=== PATIENT | female | born 1975 | race African-American/Black ===

== ENCOUNTER 2016-10-31 04:01 | Emergency (ER) | payer SELFPAY ==
[~2016-10-31 04:01] MED LIST: BISA-57 PO; IBUP-1542 PO
== END 2016-10-31 05:10 | disposition left against medical advice (07) ==
LOC: E/R 04:01
DX: Z53.21 Procedure and treatment not carried out due to patient leaving prior to being seen by health care provider (principal)

== ENCOUNTER 2017-02-12 06:36 | Emergency (ER) | payer OTHER ==
[~2017-02-12] VITALS: Ht 170.2 cm; Wt 68.0 kg
[2017-02-12 06:38] VITALS: Ht 170.2 cm; Wt 68.0 kg
[2017-02-12] MEDS ORDERED: LORATADINE 10 MG TAB PO STA ×2 (06:52→06:57)
[2017-02-12] MEDS ORDERED: LORA1TAB54 PO (06:54)
[2017-02-12] MEDS ORDERED: ACET325T33 PO (06:54)
[2017-02-12] MEDS ORDERED: FLUT9.9S NASAL (06:54)
--- NOTE | 2017-02-12 07:12 | ERD ---
ER Documentation Chief Complaint Date/Time DATE: 02/12/17 TIME: 07:06 Chief Complaint left side neck swelling w/ sinus pressure x3 wks HPI This is a 42-year-old female with no relevant medical problems presenting to the emergency department complaining of coming and going sinus pressure that is located mostly on the left side for the past 3 weeks. Overall she rates as 7 out of 10. Patient admits to having itchy throat, postnasal drip. Patient has not tried any medications. Patient states that she feels as if she has a swollen lymph node to her left throat ROS All systems reviewed and are negative except as per history of present illness. Medications Home Meds Active Scripts Acetaminophen* (Tylenol*) 325 Mg Tablet, 2 TAB PO Q6 Y for PAIN AND OR ELEVATED TEMP, #30 TAB Prov:CHICO LAL PA-C 02/12/17 Fluticasone Propionate (Flonase Allergy Relief) 9.9 Ml [place].susp, 1 SPRAY NASAL BID, #1 BOTTLE TO EACH NOSTRIL Prov:CHICO LAL PA-C 02/12/17 Loratadine/Pseudoephedrine* (Claritin-D* 12 Hr) 5-120 Mg Tab.er.12h, 1 TAB PO Q12, #30 TAB.SA Prov:CHICO LAL PA-C 02/12/17 Bisacodyl* (Dulcolax*) 5 Mg Tablet.dr, 10 MG PO DAILY Y for CONSTIPATION for 10 Days, TAB Prov:GATESOSCAR WARREN I. MOLDING MACHINE OPERATOR 01/05/16 Ibuprofen* (Motrin*) 600 Mg Tab, 600 MG PO Q6, #30 TAB Prov:OSCAR GATES I. MOLDING MACHINE OPERATOR 10/02/15 Allergies Allergies: Coded Allergies: No Known Allergy (Unverified , 10/02/15) PMhx/Soc History of Surgery: No Anesthesia Reaction: No Hx Neurological Disorder: No Hx Respiratory Disorders: No Hx Cardiac Disorders: No Hx Psychiatric Problems: No Hx Miscellaneous Medical Probl: Yes (uterine fibroids ) Hx Alcohol Use: No Hx Substance Use: No Hx Tobacco Use: No Physical Exam Vitals Vital Signs Date Time Temp Pulse Resp B/P Pulse Ox O2 Delivery O2 Flow Rate FiO2 02/12/17 06:38 97.4 77 18 143/93 100 Physical Exam GENERAL: well-developed/well-nourished, in no apparent distress, non-toxic appearing HEAD: NC/AT, no swelling noted in frontal or maxillary areas EARS: bilateral tympanic membrane is intact without erythema or effusion NARES: Patent THROAT: oropharynx non-erythematous without exudates, no tonsil enlargement, post nasal drip EYES: Conjunctiva normal NECK: Supple, no obvious lymphadenopathy on the left side of the neck PULM: CTA bilaterally, no rales, rhonchi, or wheezing heard CV: Normal S1S2, RRR, good capillary refill GI: Soft, non-distended, normal bowel sounds, non-tender BACK: No midline tenderness, no masses EXT No clubbing, cyanosis, or edema NEURO: Alert and Orientated SKIN: Intact, normal turgor PSYCH: Normal mood and mentation Results 24 hrs Current Medications Medications (Trade) Dose Ordered Sig/Ellyn Route PRN Reason Start Time Stop Time Status Last Admin Dose Admin Loratadine (Claritin) 10 mg ONCE STAT PO 02/12/17 06:52 02/12/17 07:05 DC Loratadine (Claritin) 10 mg ONCE STAT PO 02/12/17 06:57 02/12/17 07:05 DC Procedures/MDM This is a 42-year-old female presenting to the emergency room complaining of sinus pressure, postnasal drip, congestion, which is most consistent with a allergic versus viral sinusitis. Patient had stable vital signs, she had afebrile and she appeared nontoxic. There was no evidence of pneumonia, bacterial sinusitis, otitis media, otitis externa. At this time patient is suitable for outpatient medication with Flonase, Claritin-D, Tylenol. I have discussed with patient that if these medications do not help her symptoms to return to the emergency room, return to the emergency room for any worsening signs or symptoms or not improving as expected. I discussed with patient to follow-up with her primary care physician. Patient understands and agrees with this plan Departure Diagnosis: Primary Impression: Sinusitis Condition: Stable Patient Instructions: Sinus Headaches, Understanding Your Sinuses, Self-Care for Sinusitis, Evaluating Your Sinuses: History and Exam, Evaluating Your Sinuses: Diagnostic Tests Referrals: your doctor Additional Instructions: FOLLOW UP WITH YOUR PRIMARY CARE PHYSICIAN TOMORROW.Return to this facility if you are not improving as expected. Return to this facility if you are not improving as expected. Take all medicines as directed. CHICO LAL PA-C Feb 12, 2017 07:12
== END 2017-02-12 07:11 | disposition home or self-care (01) ==
LOC: FTE 06:36
DX: J01.90 Acute sinusitis, unspecified (principal)
CPT/HCPCS: 99283

== ENCOUNTER 2017-05-15 04:24 | Emergency (ER) | payer SELFPAY ==
[~2017-05-15] VITALS: Ht 167.6 cm; Wt 67.5 kg
[~2017-05-15 04:24] MED LIST changes: +ACET325T33 PO; +FLUT9.9S NASAL; +LORA1TAB54 PO
[2017-05-15 04:26] VITALS: Ht 167.6 cm; Wt 67.5 kg
== END 2017-05-15 04:47 | disposition left against medical advice (07) ==
LOC: FTE 04:24
DX: Z53.21 Procedure and treatment not carried out due to patient leaving prior to being seen by health care provider (principal)

== ENCOUNTER 2017-05-23 17:37 | Emergency (ER) | payer SELFPAY ==
[~2017-05-23] VITALS: Ht 170.2 cm; Wt 68.0 kg
[2017-05-23 17:39] VITALS: Ht 170.2 cm; Wt 68.0 kg
[2017-05-23 18:25] VITALS: BP 144/97
== END 2017-05-23 18:28 | disposition left against medical advice (07) ==
LOC: FTE 17:37
DX: Z53.21 Procedure and treatment not carried out due to patient leaving prior to being seen by health care provider (principal)

== ENCOUNTER → 2017-05-24 | Emergency (ER) | payer SELFPAY ==
[~2017-05-24] VITALS: Ht 170.2 cm; Wt 68.0 kg
[2017-05-24 05:25] VITALS: Ht 170.2 cm; Wt 68.0 kg
--- NOTE | 2017-05-26 11:26 | ERD ---
ER Documentation Chief Complaint Date/Time DATE: 05/26/17 TIME: 11:23 Chief Complaint C/O PROCTOR AND HIGH BP SINCE YESTERDAY. +PRESSURE TO BACK/FRONT OF HEAD HPI 42-year-old female patient with no significant past medical history presents to the ED complaining of being concerned of her high blood pressure a few days ago. Reports that she feels like she has pressure in the front and back of her head. States that this feels like her normal headache she has had previously. Patient states that she is going through a lot of stress at home. Denies any head or neck trauma. Denies any neck stiffness. Denies any fever, chills, nausea, vomiting, photophobia, phonophobia, chest pain, eye pain, diplopia, shortness of breath. ROS All systems reviewed and are negative except as per history of present illness. Medications Home Meds Active Scripts Acetaminophen* (Tylenol*) 325 Mg Tablet, 2 TAB PO Q6 Y for PAIN AND OR ELEVATED TEMP, #30 TAB Prov:CHICO LAL PA-C 02/12/17 Fluticasone Propionate (Flonase Allergy Relief) 9.9 Ml [place].susp, 1 SPRAY NASAL BID, #1 BOTTLE TO EACH NOSTRIL Prov:CHICO LAL PA-C 02/12/17 Loratadine/Pseudoephedrine* (Claritin-D* 12 Hr) 5-120 Mg Tab.er.12h, 1 TAB PO Q12, #30 TAB.SA Prov:CHICO LAL PA-C 02/12/17 Bisacodyl* (Dulcolax*) 5 Mg Tablet.dr, 10 MG PO DAILY Y for CONSTIPATION for 10 Days, TAB Prov:GATESOSCAR WARREN I. ORTHODONTIC TECHNICIAN ASSISTANT 01/05/16 Ibuprofen* (Motrin*) 600 Mg Tab, 600 MG PO Q6, #30 TAB Prov:GATESOSCAR I. ORTHODONTIC TECHNICIAN ASSISTANT 10/02/15 Allergies Allergies: Coded Allergies: No Known Allergy (Unverified , 05/23/17) PMhx/Soc Medical and Surgical Hx: pt denies Medical Hx History of Surgery: Yes (Uterine Fibroids) Anesthesia Reaction: No Hx Neurological Disorder: No Hx Respiratory Disorders: No Hx Cardiac Disorders: Yes (BORDERLINE HTN) Hx Psychiatric Problems: Yes (ANXIETY) Hx Miscellaneous Medical Probl: Yes (uterine fibroids ) Hx Alcohol Use: No Hx Substance Use: No Hx Tobacco Use: No Smoking Status: Never smoker Physical Exam Vitals Vital Signs Date Time Temp Pulse Resp B/P Pulse Ox O2 Delivery O2 Flow Rate FiO2 05/24/17 05:25 97.3 78 18 152/96 100 Physical Exam Const: [id number], well-nourished. In no acute distress. Head: Atraumatic, normocephalic Eyes: Normal Conjunctiva without injection. No purulent discharge. PERRLA. EOMI ENT: Normal external ear. Ear canal without erythema. Tympanic membrane pearly streeter without effusion or bulging. Nasal canal clear with normal turbinates. Moist oropharynx without tonsillar exudates. Non-erythematous pharynx. Uvula midline. No drooling. No trismus. Neck: No cervical midline tenderness. Full range of motion. No meningismus. No cervical lymphadenopathy. No JVD. Resp: Clear to auscultation bilaterally. No wheezing, rhonchi, rales, or crackles. No accessory muscle use. No retractions. Cardio: Regular rate and rhythm. No murmurs, rubs or gallops. Abd: Soft, non tender, non distended. Normal bowel sounds. No palpable masses. No rebound tenderness. No guarding. Negative McBurney's Point. Negative Loaiza's Sign. Skin: Normal skin turgor. No petechiae or rashes Back: No midline tenderness. No CVA tenderness. Ext: No cyanosis, or edema. Distal pulses intact bilaterally. Neur: Awake and alert. Normal gait. Normal coordination. Cranial Nerves II- VII intact. Normal finger to nose. Muscle strength 5/5. Sensation intact. Psych: Normal Mood and Affect Procedures/MDM This is a 42-year-old female patient with no significant past medical history presents the ED complaining of a headache and being concerned of her blood pressure. Patient's blood pressure is 152/96. Patient's blood pressure was elevated (>120/80) but appears stable without evidence of hypertension emergency or urgency. The patient was counseled about the risks of hypertension and urged to pursue outpatient monitoring and therapy within a week with their primary care physician. Instructed patient to increase in fluid intake. Low suspicion for acute myocardial infarction, pneumothorax, pneumonia, cardiac tamponade, pulmonary embolism, pleural effusion, AAA, aortic dissection, Boerhaave's syndrome, cardiac dysrhythmias,meningitis, intracranial bleed, seizure, stroke, TIA or other emergent conditions. Follow up with primary care physician in 1-2 days. Instructed patient to return to the ED sooner for any worsening symptoms. Patient's questions were answered. Patient understood and agreed with discharge plan. Patient discharged stable. Departure Diagnosis: Primary Impression: Headache Headache type: unspecified Headache chronicity pattern: unspecified pattern Intractability: not intractable Qualified Code: R51 - Nonintractable headache, unspecified chronicity pattern, unspecified headache type Condition: Stable Patient Instructions: Stress Relief: Activities, Stress Relief: Relaxation, High Blood Pressure (Hypertension) Referrals: [facility] YOU HAVE RECEIVED A MEDICAL SCREENING EXAM AND THE RESULTS INDICATE THAT YOU DO NOT HAVE A CONDITION THAT REQUIRES URGENT TREATMENT IN THE EMERGENCY DEPARTMENT. FURTHER EVALUATION AND TREATMENT OF YOUR CONDITION CAN WAIT UNTIL YOU ARE SEEN IN YOUR DOCTORS OFFICE WITHIN THE NEXT 1-2 DAYS. IT IS YOUR RESPONSIBILITY TO MAKE AN APPOINTMENT FOR FOLOW-UP CARE. IF YOU HAVE A PRIMARY DOCTOR --you should call your primary doctor and schedule an appointment IF YOU DO NOT HAVE A PRIMARY DOCTOR YOU CAN CALL OUR PHYSICIAN REFERRAL HOTLINE AT IF YOU CAN NOT AFFORD TO SEE A PHYSICIAN YOU CAN CHOSE FROM THE FOLLOWING [facility] [address] [facility]. [facility] [address] [facility] [address] [facility] [facility] [address] [facility] [address] [facility]. [facility] [address] [facility] YOU HAVE RECEIVED A MEDICAL SCREENING EXAM AND THE RESULTS INDICATE THAT YOU DO NOT HAVE A CONDITION THAT REQUIRES URGENT TREATMENT IN THE EMERGENCY DEPARTMENT. FURTHER EVALUATION AND TREATMENT OF YOUR CONDITION CAN WAIT UNTIL YOU ARE SEEN IN YOUR DOCTORS OFFICE WITHIN THE NEXT 1-2 DAYS. IT IS YOUR RESPONSIBILITY TO MAKE AN APPOINTMENT FOR FOLOW-UP CARE. IF YOU HAVE A PRIMARY DOCTOR --you should call your primary doctor and schedule and appointment IF YOU DO NOT HAVE A PRIMARY DOCTOR YOU CAN CALL OUR PHYSICIAN REFERRAL HOTLINE AT . IF YOU CAN NOT AFFORD TO SEE A PHYSICIAN YOU CAN CHOSE FROM THE FOLLOWING [facility] INSTITUTIONS: [facility] [address] [place] [address] [facility] [address] [place], [place] [id number] [place] [address] [address] [place] [address] [facility] URGENT CARE/SPECIALTIES Additional Instructions: Call your primary care doctor TOMORROW for an appointment during the next 2-3 days.See the doctor sooner or return here if your condition worsens before your appointment time. TONI GUPTA PA-C May 26, 2017 11:26
== END | disposition home or self-care (01) ==
LOC: FTE 05:22
DX: R51 Headache (principal)
CPT/HCPCS: 99282